=== PATIENT | female | born 1975 ===

== ENCOUNTER 2023-06-24 11:05 | Outpatient (CLI) | payer OTHER, SELFPAY ==
--- NOTE | ~2023-06-24 | US_ITS ---
EXAMINATION:US venous doppler LE LT INDICATION:Left calf pain TECHNIQUE: Multiple grayscale, color flow and Doppler images of the left lower extremity deep venous systems were obtained and reviewed. COMPARISON:No prior studies for comparison. FINDINGS: The common femoral, superficial femoral and popliteal veins demonstrate normal respiratory variation, augmentation and compressibility. Color flow is also seen within the posterior tibial, pe roneal, greater saphenous and profunda veins. IMPRESSION: 1: No lower extremity deep venous thrombosis. Reviewed, dictated and finalized at location [facility].
== END 2023-06-24 11:06 ==
LOC: MICIMG 11:07
PROVIDERS: PCP Registered Nurse; Visit Provider Registered Nurse
DX: M79.662 Pain in left lower leg (principal)
CPT/HCPCS: 93971

== ENCOUNTER → 2023-06-25 09:01 | Outpatient (CLI) | payer OTHER, SELFPAY ==
--- NOTE | ~2023-06-25 | US_ITS ---
US abdomen complete EXAMINATION: US Abdomen Complete INDICATION: Generalized edema. Abdomen swelling. PROCEDURE: Realtime High Resolution abdomen ultrasound. COMPARISON: No prior studies for comparison FINDINGS: Gallbladder is surgically absent. Common bile duct measures 4 mm. Liver echotexture is increased, consistent with fatty infiltration.. Pancreas within normal limits. Pancreatic tail is obscured by bowel gas. Spleen is unremarkeable. Renal echotexture is within norm al limits bilaterally without hydronephrosis, contour deforming mass or renal stone. Right kidney cullen sures 11.4 cm. Left kidney measures 12.2 cm. There is a left renal cyst measuring 1.3 cm. Visualized aspects of the aorta and IVC are within normal limits. Portal vein is patent. No sonograph ic Prasad's sign indicated by the technologist. IMPRESSION: 1: Left renal cyst measuring 1.3 cm. 2: Hepatic steatosis. Reviewed, dictated and finalized at [facility].
== END ==
PROVIDERS: PCP Registered Nurse; Visit Provider Registered Nurse
DX: R60.1 Generalized edema (principal); N28.1 Cyst of kidney, acquired; K76.0 Fatty (change of) liver, not elsewhere classified
CPT/HCPCS: 76700